=== PATIENT | female | born 1965 | race Caucasian/White ===

== ENCOUNTER 2020-04-06 00:06 | Outpatient (CLI) | payer OTHER, SELFPAY ==
--- NOTE | 2020-04-06 13:08 | PM.IMHP ---
H&P: HPI History of Present Illness Chief complaint: preop covid Narrative: Erendira Bourne is a 54 year old female presents for evaluation of irregular vaginal bleeding. Has been on control pills for a number of years with regular cycles and her last cycle was heavy with bleeding clots and significant amount of discomfort. Ultrasound revealed mildly enlarged uterus with thickened irregular endometrial cavity. Presents today for evaluation of cavity and tissue sampling. Review of Systems Review of Systems: All systems reviewed & are unremarkable except as noted in HPI and below PMFSH Family History Family History Father Family history of thyroid disease Hypertension Family history of sleep apnea Sibling Family history of thyroid disease Grandparent Hypertension Carcinoma of colon Family history of emphysema Family history of dementia Family history of heart disease in male family member before age 55 Diabetes mellitus Mother Family history of chronic obstructive pulmonary disease Social History Social History Smoking status: Never smoker Alcohol intake: never Meds Home Medications and Allergies Home Medications Medication Instructions Recorded Confirmed Type calcium carbonate [Calcium 500] 500 mg PO DAILY 03/26/20 03/26/20 History magnesium oxide 400 mg PO DAILY 03/26/20 03/26/20 History Allergies Allergy/AdvReac Type Severity Reaction Status Date / Time No Known Allergies Allergy Verified 03/26/20 13:18 Exam Const: General: no acute distress Resp: Auscultation: clear to auscultation bilaterally Cardio: Rate: regular rate Rhythm: regular rhythm GI: GI Palp: Yes Soft to palpation : Other: Uterus is enlarged adnexa not enlarged nontender Assessment and Plan Assessment and plan (1) Menometrorrhagia: Code(s): N92.1 - Excessive and frequent menstruation with irregular cycle Status: Acute (2) Endometrial thickening on ultrasound: Code(s): R93.89 - Abnormal findings on diagnostic imaging of other specified body structures Status: Acute Additional Plan Proceed with hysteroscopy with uterine curettings.
[2020-04-06 17:13] LABS: SARS-CoV-2 RNA PCR Negative
== END 2020-04-06 00:07 | disposition home or self-care (01) ==
LOC: ANHCOVIDDT 00:06
PROVIDERS: PCP Family Medicine; Visit Provider Obstetrics & Gynecology
DX: Z01.812 Encounter for preprocedural laboratory examination (principal); Z11.59 Encounter for screening for other viral diseases
CPT/HCPCS: 87635; C9803; U0003

== ENCOUNTER 2020-04-08 01:21 | Day surgery (SDC) | payer OTHER, SELFPAY ==
[2020-03-26 13:20] VITALS: BMI 24.3
--- NOTE | 2020-04-08 09:33 | WPDANESEPPF ---
Anes - Initial Pre Proc Eval Procedure: Operation Date: 04/08/20 12:45 Proposed Procedures p Hysteroscopy Dilation and Curettage - Sam Madrid MD Date/Time: 04/08/20 09:33 Surgeon: Sam Madrid MD Pre Op Diagnosis: menorrhagia Patient Data Age: 54 Gender: F Height: 1.73 m Weight: 72.7 kg Allergies Allergy/AdvReac Type Severity Reaction Status Date / Time No Known Allergies Allergy Verified 03/26/20 13:18 Home Medications Medication Instructions Recorded Confirmed Type calcium carbonate [Calcium 500] 500 mg PO DAILY 03/26/20 03/26/20 History magnesium oxide 400 mg PO DAILY 03/26/20 03/26/20 History Patient hx anesthesia problems: none Family hx anesthesia problems: none [facility] Past Medical History Medical History (Updated 04/08/20 @ 09:34 by Nino Tony MD) Abnormal uterine bleeding Endometrial thickening on ultrasound Menometrorrhagia Social History Social History Smoking status: Never smoker Alcohol intake: never Anes - Eval Final PreProcedure Day of Procedure 04/08/20 09:33 Patient weight: obese Heart: regular rate and rhythm Lungs: clear to auscultation and normal air movement Airway: Mallampati scale class II Neurological: alert and oriented Last oral intake: >/= 8 hours ASA classification: II Emergent: no Anesthetic plan: proceed Anesthesia type and monitoring: general GIVS Informed Consent: The patient's anesthetic plan and its attendant risks and benefits were discussed with the patient/family/POA. Questions were solicited and answers provided to the satisfaction of the patient/family/POA.
[2020-04-08] MEDS: LACTATED RINGERS 1,000 ML 30 ML IV CONT (11:10)
[2020-04-08 11:26] VITALS: BMI 25.7
[2020-04-08 11:49] VITALS: BP 129/67; PULSE 73; RESP 16; TEMP 36.9; O2SAT 100
--- NOTE | 2020-04-08 11:58 | WPDHPUPDATE1 ---
History and Physical Update Update Date/Time: 04/08/20 11:58 History and Physical has been reviewed, including an updated exam of the patient. There are NO changes in the patient's condition. Risks, benefits, and alternatives have been discussed and questions answered. Patient agrees to proceed with procedure.
[2020-04-08] MEDS: KETOROLAC 30 MG/ML VIAL (*BKC) IV PUSH (12:48)
--- NOTE | 2020-04-08 13:07 | PM.OP ---
Procedure Note - Brief Procedure Note - Brief Date of procedure: 04/08/20 Pre-op diagnosis: menorrhagia Post-op diagnosis: same Procedure performed: Hysteroscopy with uterine curettings with myomectomy. Description of procedure: Patient prepped in usual manner for this procedure. Cervix dilated to allow the hysteroscope to be placed. Once placed thickened posterior wall was noted along with a small fibroid in the posterior wall. This was readily removed with curettings. At this point seizure was considered terminated and the patient procedure well sent to recovery room in stable condition. Anesthesia: GLMA Surgeon: Sam Madrid MD Estimated blood loss (mL): 0 Drains: No Packing: No Pathology: yes Complications: No immediate complications Condition: stable Disposition: PACU Findings: Thickened posterior wall along with small posterior wall fibroid.
[2020-04-08 13:12] VITALS: BP 113/66; PULSE 71; RESP 18; O2SAT 94
[2020-04-08 13:40] VITALS: BP 139/74; PULSE 67; RESP 16; O2SAT 98
[2020-04-08 14:10] VITALS: BP 129/65; PULSE 64; RESP 16
== END 2020-04-08 14:36 | disposition home or self-care (01) ==
PROVIDERS: PCP Family Medicine; Visit Provider Obstetrics & Gynecology
PROC: 0U5B8ZZ Destruction of Endometrium, Via Natural or Artificial Opening Endoscopic (ICD-10-PCS; CPT 58563; principal; 2020-04-08 12:45)
DX: N92.0 Excessive and frequent menstruation with regular cycle (principal); D25.0 Submucous leiomyoma of uterus; E66.9 Obesity, unspecified; Z68.25 Body mass index [BMI] 25.0-25.9, adult
CPT/HCPCS: 58561; 88305; A9270; J1885; J2250; J2704; J3010; J7030; J7120

== ENCOUNTER 2021-07-12 00:35 | Day surgery (SDC) | payer OTHER, SELFPAY ==
[2021-07-05 12:40] VITALS: BMI 22.8
[2021-07-12 10:37] VITALS: BP 113/71; PULSE 74; RESP 16; TEMP 36.2; O2SAT 100; BMI 22.8
--- NOTE | 2021-07-12 10:45 | PM.HPGS ---
History of Present Illness History of Present Illness Consent: Risks, benefits, and alternatives have been discussed and questions answered. Patient agrees to proceed with procedure. Chief complaint: neoplasm screening Narrative: Erendira Bourne is a 55 year old female here for first screening colonoscopy Review of Systems Constitutional: Constitutional: Denies headache(s) and Denies weakness Eyes: Eyes: Denies blurry vision ENT: Reports Normal hearing present, Denies headache(s) and Denies neck pain Cardiovascular: Cardiovascular: Denies chest pain and Denies dyspnea Respiratory: Respiratory: Denies dyspnea Gastrointestinal: Gastrointestinal: Reports no additional gastrointestinal complaints Genitourinary: Genitourinary: Denies dysuria Musculoskeletal: Musculoskeletal: Denies neck pain Integumentary/Breasts: Skin/Breast: Denies dry skin Neurologic: Reports Normal hearing present, Denies headache(s) and Denies weakness Psychiatric: Psychiatric: Denies anxiety Endocrine: Endocrine: Denies change in body appearance Hematologic/Lymphatic: Hematologic/Lymphatic: Denies easy bleeding Allergic/Immunologic: Allergic/Immunologic: Denies urticaria PMFSH Past Medical History Medical History (Updated 07/12/21 @ 10:45 by Kana Cuenca MD) Abnormal uterine bleeding Colon cancer screening Endometrial thickening on ultrasound Menometrorrhagia Surgical History Surgical History H/O dilation and curettage (~04/2020) Family History Family History Father Family history of thyroid disease Hypertension Family history of sleep apnea Sibling Family history of thyroid disease Grandparent Hypertension Carcinoma of colon Family history of emphysema Family history of dementia Family history of heart disease in male family member before age 55 Diabetes mellitus Mother Family history of chronic obstructive pulmonary disease Social History Social History Smoking status: Never smoker Alcohol intake: never Substance use: never Substance use type: does not use Living arrangements: with family Spiritual care concerns: No Meds Home Medications and Allergies Home Medications Medication Instructions Recorded Confirmed Type calcium carbonate [Calcium 500] 500 mg PO DAILY 03/26/20 07/05/21 History magnesium oxide 400 mg PO DAILY 03/26/20 07/12/21 History Allergies Allergy/AdvReac Type Severity Reaction Status Date / Time No Known Allergies Allergy Verified 07/12/21 10:35 Vital Signs Vital Signs - 24 hr 07/12/21 10:37 Temperature 97.2 F L Pulse Rate 74 Respiratory Rate 16 Blood Pressure 113/71 Pulse Oximetry 100 Exam Const: General: comfortable and no acute distress HENMT: General nose exam: Normal nares present Eyes: General: appearance normal, both eyes and all related structures Neck: Neck: no JVD Resp: Auscultation: clear to auscultation bilaterally Cardio: Rate: regular rate Rhythm: regular rhythm GI: Inspection: non-distended GI Palp: Yes Soft to palpation Skin: General skin exam: normal color Neuro: General: gait normal Speech: normal speech Extrem: General: normal to inspection Psych: Mental Status: mental status grossly normal Assessment and Plan Assessment and plan (1) Colon cancer screening: Code(s): Z12.11 - Encounter for screening for malignant neoplasm of colon Status: Acute Assessment and Plan: colonoscopy
[2021-07-12] MEDS: LACTATED RINGERS 1,000 ML 150 ML IV CONT (10:46)
--- NOTE | 2021-07-12 10:50 | WPDANESEPPF ---
Anes - Initial Pre Proc Eval Procedure: Operation Date: 07/12/21 12:00 Proposed Procedures p Screening Colonoscopy - Kana Cuenca MD Date/Time: 07/12/21 10:50 Surgeon: Kana Cuenca MD Pre Op Diagnosis: neoplasm screening Patient Data Age: 55 Gender: F Height: 1.73 m Weight: 68 kg Last Vital Signs Temp 36.2 C L 07/12/21 10:37 Pulse 74 07/12/21 10:37 Resp 16 07/12/21 10:37 BP 113/71 07/12/21 10:37 Pulse Ox 100 07/12/21 10:37 Allergies Allergy/AdvReac Type Severity Reaction Status Date / Time No Known Allergies Allergy Verified 07/12/21 10:35 Home Medications Medication Instructions Recorded Confirmed Type calcium carbonate [Calcium 500] 500 mg PO DAILY 03/26/20 07/05/21 History magnesium oxide 400 mg PO DAILY 03/26/20 07/12/21 History Patient hx anesthesia problems: none Family hx anesthesia problems: none Results Review: All pre-operative results and documents have been reviewed as part of the pre-operative evaluation. [facility] Past Medical History Medical History (Updated 07/12/21 @ 10:53 by Hung Caba MD) Abnormal uterine bleeding Cholesteatoma of ear Colon cancer screening Endometrial thickening on ultrasound Menometrorrhagia Surgical History Surgical History H/O dilation and curettage (~04/2020) Family History Family History Father Family history of thyroid disease Hypertension Family history of sleep apnea Sibling Family history of thyroid disease Grandparent Hypertension Carcinoma of colon Family history of emphysema Family history of dementia Family history of heart disease in male family member before age 55 Diabetes mellitus Mother Family history of chronic obstructive pulmonary disease Social History Social History Smoking status: Never smoker Alcohol intake: never Substance use: never Substance use type: does not use Living arrangements: with family Spiritual care concerns: No Anes - Eval Final PreProcedure Day of Procedure 07/12/21 10:50 Patient weight: normal Heart: regular rate and rhythm Lungs: clear to auscultation Airway: Mallampati scale class II Neurological: alert and oriented Last oral intake: >/= 8 hours ASA classification: I Emergent: no Anesthetic plan: proceed Anesthesia type and monitoring: general GIVS and standard monitoring Results Review: All pre-operative results and documents have been reviewed as part of the pre-operative evaluation. Informed Consent: The patient's anesthetic plan and its attendant risks and benefits were discussed with the patient/family/POA. Questions were solicited and answers provided to the satisfaction of the patient/family/POA.
[2021-07-12 11:37] VITALS: BP 90/54; PULSE 65; RESP 21; O2SAT 100
[2021-07-12 11:47] VITALS: BP 102/59; PULSE 63; RESP 25; O2SAT 100
[2021-07-12 11:57] VITALS: BP 124/73; PULSE 63; RESP 16; O2SAT 100
== END 2021-07-12 12:07 | disposition home or self-care (01) ==
PROVIDERS: PCP Nurse Practitioner Family; Visit Provider Internal Medicine Gastroenterology
PROC: 0DJD8ZZ Inspection of Lower Intestinal Tract, Via Natural or Artificial Opening Endoscopic (ICD-10-PCS; CPT 45378; principal; 2021-07-12 12:00)
DX: Z12.11 Encounter for screening for malignant neoplasm of colon (principal); D12.2 Benign neoplasm of ascending colon; K64.8 Other hemorrhoids
CPT/HCPCS: 45385; 45380; 88305; J2704; J7120

== ENCOUNTER → 2021-07-15 08:21 | Outpatient (CLI) | payer OTHER, SELFPAY ==
--- NOTE | ~2021-07-15 | MM_ITS ---
EXAMINATION: MM diagnostic [place] BI w ade HISTORY: Fibrocystic breast disease TECHNIQUE: Additional 3-D tomosynthesis images of the breasts were performed and synthetic 2-D images were generated. CAD analysis was submitted and interpreted. COMPARISON: Comparison to multiple prior studies sequentially, with oldest reviewed study dated 12/13. BREAST PARENCHYMAL COMPOSITION: The breasts are heterogenously dense, which may obscure small masses. FINDINGS: There are no suspicious masses, calcifications or architectural distortion in either breast to suggest malignancy. IMPRESSION: 1. No mammographic evidence for malignancy in either breast. 2. Routine yearly screening mammogram and regular clinical breast examination are recommended. BI-RADS Category 1: Negative Reviewed, dictated and finalized at location [facility]. IMPRESSION: 1. No mammographic evidence for malignancy in either breast. 2. Routine yearly screening mammogram and regular clinical breast examination a re recommended. BI-RADS Category 1: Negative
== END ==
PROVIDERS: Visit Provider Obstetrics & Gynecology
DX: R92.8 Other abnormal and inconclusive findings on diagnostic imaging of breast (principal)
CPT/HCPCS: 77062; 77066; G0279

== ENCOUNTER → 2021-08-20 15:15 | Outpatient (CLI) | payer OTHER, SELFPAY ==
--- NOTE | ~2021-08-20 | CT_ITS ---
EXAMINATION: CT abdomen pelvis wo/w con DATE: 08/20/2021 16:11 INDICATION: Microscopic hematuria TECHNIQUE: Computed tomography (CT) of the abdomen and pelvis was performed without and subsequently with 130 cc Omnipaque 350 intravenous contrast. Automated exposure control and iterative reconstructi on technique were employed. Exam dose: 1163.15 mGy-cm total exam DLP. COMPARISON: None. FINDINGS: The lung bases are clear of infiltrate or consolidation. Heart size is normal. No pericardi al or pleural effusion. The liver, gallbladder, bile ducts, spleen, pancreas, pancreatic duct, and adrenal glands and kidneys are unremarkable. No urinary tract calculus or hydroureteronephrosis. The urinary bladder, uterus an d adnexal areas are unremarkable. Normal caliber of the abdominal aorta. No intraperitoneal or retroperitoneal or pelvic mass lesion or adenopathy or ascites. Normal appendix. No bowel obstruction, bowel wall thickening, pneumatosis or intraperitoneal free air . No suspicious osteolytic or osteoblastic lesions are noted. IMPRESSION: No significant abnormality Reviewed, dictated and finalized at [facility]. Reviewed, dictated and finalized at location [facility]. IMPRESSION: No significant abnormality
[2021-08-20 15:45] LABS: Estimated Glomerular Filt Rate > 60
== END ==
PROVIDERS: Visit Provider Urology
DX: R31.29 Other microscopic hematuria (principal)
CPT/HCPCS: 74178; Q9967

== ENCOUNTER 2021-09-21 08:04 | Outpatient (CLI) | payer OTHER, SELFPAY ==
--- NOTE | 2021-09-21 08:37 | ECG_ITS ---
Measurements Intervals [place] Rate: 64 P: 65 TX: 173 QRS: 46 QRSD: 98 T: 53 QT: 408 QTc: 424 Interpretive Statements SINUS RHYTHM POSSIBLE LEFT ATRIAL ENLARGEMENT INCOMPLETE RIGHT BUNDLE BRANCH BLOCK BORDERLINE R WAVE PROGRESSION, ANTERIOR LEADS BORDERLINE ECG Electronically Signed On 09-21-2021 9:37:01 [employer] by Azael Hyman D.O.
[2021-09-21 09:22] LABS: Basophils Percent Auto 0.6 % (0.2-1.2); Eosinophils Absolute Auto 0.1 K/mm3 (0-0.3); Eosinophils Percent Auto 2.5 % (0-4.4); Hematocrit 44.1 % (37.0-47.0); Hemoglobin 14.4 g/dL (12.0-15.0); Immature Granulocyte Absolute 0.01 K/mm3 (0.00-0.031); Immature Granulocyte Percent A 0.2 % (0-0.5); Lymphocytes Absolute Auto 1.97 K/mm3 (0.9-3.2); Lymphocytes Percent Auto 38.2 % (18.3-44.2); Mean Corpuscular HGB Conc 32.7 g/dl (32-36); Mean Corpuscular Hemoglobin 29.3 pg (26-34); Mean Corpuscular Volume 89.8 fl (80-100); Mean Platelet Volume 11.2 fl (7.4-10.4); Monocytes Absolute Auto 0.4 K/mm3 (0.1-0.6); Monocytes Percent Auto 6.8 % (2.6-8.5); Neutrophils Absolute Auto 2.7 K/mm3 (1.3-6.7); Neutrophils Percent Auto 51.7 % (45.5-73.1); Platelet Count Result 226 k/mm3 (150-375); Red Blood Count 4.91 M/mm3 (4.2-5.4); Red Cell Distribution Width 13.2 % (11.5-14.5); White Blood Count 5.2 K/mm3 (4.5-10.0)
[2021-09-21 09:30] LABS: INR 0.9; Prothrombin Time 11.7 Seconds (11.1-14.7)
[2021-09-21 09:31] LABS: Partial Thromboplastin Time 27.1 SECONDS (22.3-36.8)
[2021-09-21 09:33] LABS: Alanine Aminotransferase 26 U/L (4-35); Albumin Level 4.4 g/dL (3.5-5.1); Alkaline Phosphatase 94 U/L (38-126); Anion Gap 7 mmol/L (8-16); Aspartate Amino Transferase 27 U/L (14-36); Bilirubin,Total 0.6 mg/dL (0.2-1.3); Blood Urea Nitrogen 13 mg/dL (7-17); Carbon Dioxide 30 mmol/L (22-30); Chloride 102 mmol/L (98-107); Estimated Glomerular Filt Rate > 60; Glucose 97 mg/dL (65-110); Potassium 3.6 mmol/L (3.4-5.0); Sodium 139 mmol/L (137-145)
== END 2021-09-21 08:05 | disposition home or self-care (01) ==
LOC: ANHSURGERY 08:07
PROVIDERS: PCP Nurse Practitioner Family; Visit Provider Urology
DX: N81.4 Uterovaginal prolapse, unspecified (principal); Z01.818 Encounter for other preprocedural examination; I45.10 Unspecified right bundle-branch block
CPT/HCPCS: 36415; 80053; 85025; 85610; 85730; 86850; 86900; 86901; 87086; 93005

== ENCOUNTER 2021-10-04 01:56 | Day surgery (SDC) | payer OTHER, SELFPAY ==
--- NOTE | 2021-09-21 08:01 | PC.NURSE ---
Addendum entered by Sally Jo RN 09/21/21 08:28: PT INFORMED TO ARRIVE AT 0900 ON 10/04/21 FOR SURGERY AT 1100 - UNDERSTANDING VOICED Original Note: Report to the Outpatient Waiting Room, entrance under the green pavilion located off [facility], at time _0800_ on date _10/04/21_. OR Time: __0900 AM__. - You and your visitor will be asked a series of questions to screen for COVID 19 for your protection. - A mask is required within the hospital. - Only one visitor is allowed at this time. Patient visitors will be guided where to wait when not with patient. Preoperative COVID Testing Requirements: No COVID Test needed if: (proof is required; if not received patient will have Rapid Test prior to entry) - Patient has received COVID Vaccine at least 14 days prior to procedure date or - Patient has positive COVID test result within last 90 days of surgery date. COVID Test needed if above criteria is not met If not COVID vaccinated a COVID test must be conducted within 72 hours of surgery and patient is asked to isolate self from time of testing until procedure. You will go to the [employer] [facility] for your COVID testing. The [employer] [facility] is located at the corner of [address] [facility]. You will only be called if COVID results are positive and your surgeon may reschedule your elective surgery date. Patients may have clear liquids (water, carbonated beverages, clear teas, apple juice) until 3 hours prior to surgery (0800 AM) with a maximum of 20 ounces. - No food from midnight until time of surgery - Infants may have breast milk until 4 hours before surgery, formula 6 hours prior to surgery. - Children will be allowed to drink immediately following surgery. If applicable, please bring a bottle or sippy cup to assist with drinking. Juice, water, soda, and popsicles are readily available. For infants on formula, please bring formula the day of surgery. Pacifiers are allowed. Take the following medications with a SIP of water the morning of surgery: NONE Medications to discontinue per physician ____ALL VITAMINS & SUPPLEMENTS - 3 DAYS PRIOR TO SURGERY PER ANESTHESIA Date to take last dose____09/30/21 Please no make-up, nail salvadorean, hairspray, perfume, deodorant, or body powder the day of surgery. No jewelry (including any body piercings) or valuables the day of surgery, leave them at home. Please take a shower or bath the night before, or the morning of, surgery with an antibacterial soap. Wear comfortable, loose fitting clothing. Children are encouraged to wear pajamas. - Jewelry must be removed prior to entering the operating room. Rings and piercings that are not removed may be cut off. - The hospital will not accept responsibility for valuables. - Please leave all valuables, including medications, at home the day of surgery. If you are going home after surgery, a licensed trailer driver must drive you home. - NO public transportation without another adult. - We recommend that an adult stay with you for 24 hours following discharge. - We also recommend that you do not drive, make important decision, drink alcoholic beverages, or take any drugs that were not prescribed by your health care provider for at least 24 hours after your discharge time. For Pediatric surgeries, we recommend two adults accompany the child home (only one inside the building at this time). Follow any additional instructions given to you from your surgeon. Telephone instructions given to ___PT and asked if any additional questions and then verbalized understanding. Patient advised to call surgeon office or pre surgery nurse liaison [phone] if any additional questions.
[2021-09-21 08:03] VITALS: BP 120/68; PULSE 70; RESP 18; TEMP 36.7; O2SAT 99; BMI 24.0
--- NOTE | 2021-10-01 09:47 | P.HP_ITS ---
H&P: HPI History of Present Illness Date/Time: 10/01/21 09:47 55-year-old with uterine prolapse. No stress incontinence Chief Complaint: Uterine prolapse Review of Systems Review of Systems: All systems reviewed & are unremarkable except as noted in HPI and below PMFSH Past Medical History Medical History Abnormal uterine bleeding Cholesteatoma of ear Colon cancer screening Endometrial thickening on ultrasound Menometrorrhagia Surgical History Surgical History H/O dilation and curettage (~04/2020) Family History Family History Father Family history of thyroid disease Hypertension Family history of sleep apnea Sibling Family history of thyroid disease Grandparent Hypertension Carcinoma of colon Family history of emphysema Family history of dementia Family history of heart disease in male family member before age 55 Diabetes mellitus Mother Family history of chronic obstructive pulmonary disease Social History Social History Smoking status: Never smoker Second hand tobacco smoke exposure: No Alcohol intake: never Substance use: never Substance use type: does not use Spiritual care concerns: No Meds Home Medications and Allergies Home Medications Medication Instructions Recorded Confirmed Type calcium carbonate [Calcium 500] 500 mg PO DAILY 03/26/20 09/21/21 History magnesium oxide 400 mg PO DAILY 03/26/20 09/21/21 History Allergies Allergy/AdvReac Type Severity Reaction Status Date / Time No Known Allergies Allergy Verified 09/21/21 08:19 Exam Narrative: [place] at 0 Assessment and Plan Assessment and plan (1) Uterine prolapse: Code(s): N81.4 - Uterovaginal prolapse, unspecified Status: Acute Assessment and Plan: Robotic sacral colpopexy
[2021-10-04] VITALS (11 sets, daily range): BP systolic 102–139; BP diastolic 58–93; PULSE 51–71; RESP 9–18; TEMP 36.1–36.6; O2SAT 98–100
--- NOTE | 2021-10-04 07:14 | WPDHPUPDATE1 ---
History and Physical Update Update Date/Time: 10/04/21 07:14 History and Physical has been reviewed, including an updated exam of the patient. There are NO changes in the patient's condition. Risks, benefits, and alternatives have been discussed and questions answered. Patient agrees to proceed with procedure.
[2021-10-04] MEDS: ACETAMINOPHEN 500 MG TABLET 1000 MG PO (09:54)
[2021-10-04] MEDS: KETOROLAC 15 MG/ML VIAL (*BKC) IV PUSH (10:06)
[2021-10-04] MEDS: LACTATED RINGERS 1,000 ML 30 ML IV CONT ×2 (10:10→14:30)
--- NOTE | 2021-10-04 10:48 | WPDANESEPPF ---
Anes - Initial Pre Proc Eval Procedure: Operation Date: 10/04/21 11:00 Proposed Procedures p Robotic Sacrocolpopexy - Leroy Boyd MD s Robotic Assisted Laparoscopic Supracervical Hysterectomy with Bilateral Salpingo-Oophorectomy - Sam Madrid MD Date/Time: 10/04/21 10:48 Surgeon: Leroy Boyd MD Pre Op Diagnosis: uterine prolapse Patient Data Age: 55 Gender: F Height: 1.73 m Weight: 71.9 kg Last Vital Signs Temp 36.7 C 09/21/21 08:03 Pulse 70 09/21/21 08:03 Resp 18 09/21/21 08:03 BP 120/68 09/21/21 08:03 Pulse Ox 99 09/21/21 08:03 Allergies Allergy/AdvReac Type Severity Reaction Status Date / Time No Known Allergies Allergy Verified 10/04/21 09:52 Home Medications Medication Instructions Recorded Confirmed Type calcium carbonate [Calcium 500] 500 mg PO DAILY 03/26/20 10/04/21 History magnesium oxide 400 mg PO DAILY 03/26/20 10/04/21 History Patient hx anesthesia problems: post op nausea/vomiting Family hx anesthesia problems: none Results Review: All pre-operative results and documents have been reviewed as part of the pre-operative evaluation. [facility] Past Medical History Medical History Abnormal uterine bleeding Cholesteatoma of ear Colon cancer screening Endometrial thickening on ultrasound Menometrorrhagia Surgical History Surgical History H/O dilation and curettage (~04/2020) Family History Family History Father Family history of thyroid disease Hypertension Family history of sleep apnea Sibling Family history of thyroid disease Grandparent Hypertension Carcinoma of colon Family history of emphysema Family history of dementia Family history of heart disease in male family member before age 55 Diabetes mellitus Mother Family history of chronic obstructive pulmonary disease Social History Social History Smoking status: Never smoker Second hand tobacco smoke exposure: No Alcohol intake: never Substance use: never Substance use type: does not use Living arrangements: with family Spiritual care concerns: No Anes - Eval Final PreProcedure Day of Procedure 10/04/21 10:48 Patient weight: normal Heart: regular rate and rhythm Lungs: clear to auscultation Airway: Mallampati scale class II Neurological: alert and oriented Last oral intake: >/= 8 hours ASA classification: I Emergent: no Anesthetic plan: proceed Anesthesia type and monitoring: general ETT and standard monitoring Results Review: All pre-operative results and documents have been reviewed as part of the pre-operative evaluation. Informed Consent: The patient's anesthetic plan and its attendant risks and benefits were discussed with the patient/family/POA. Questions were solicited and answers provided to the satisfaction of the patient/family/POA.
[2021-10-04] MEDS: ceFAZolin 2 GM/D5W 50 ML 2 GM/50 ML BAG IVPB (11:21)
--- NOTE | 2021-10-04 11:23 | PM.IMHP ---
H&P: HPI History of Present Illness Date/Time: 10/04/21 11:23 55-year-old 2 para 2002 female presents with complaints of pelvic pressure fullness for a number of years worsening over the last 6 months. She has seen Dr. Boyd will also be proceeding with sacral colpopexy. We have discussed ovarian preservation and or removal and she was strongly desirous of retaining her ovaries. Have suggested that might be in her best interest to have removed but she feels fairly strongly that if there are no abnormalities noted at the time of her procedure that she proceed retention. We will honor this request. Chief Complaint: Uterine prolapse [facility] Past Medical History Medical History Abnormal uterine bleeding Cholesteatoma of ear Colon cancer screening Endometrial thickening on ultrasound Menometrorrhagia Surgical History Surgical History H/O dilation and curettage (~04/2020) Family History Family History Father Family history of thyroid disease Hypertension Family history of sleep apnea Sibling Family history of thyroid disease Grandparent Hypertension Carcinoma of colon Family history of emphysema Family history of dementia Family history of heart disease in male family member before age 55 Diabetes mellitus Mother Family history of chronic obstructive pulmonary disease Social History Social History Smoking status: Never smoker Second hand tobacco smoke exposure: No Alcohol intake: never Substance use: never Substance use type: does not use Living arrangements: with family Spiritual care concerns: No Meds Home Medications and Allergies Home Medications Medication Instructions Recorded Confirmed Type calcium carbonate [Calcium 500] 500 mg PO DAILY 03/26/20 10/04/21 History magnesium oxide 400 mg PO DAILY 03/26/20 10/04/21 History Allergies Allergy/AdvReac Type Severity Reaction Status Date / Time No Known Allergies Allergy Verified 10/04/21 09:52 Vital Signs Vital Signs - 24 hr 10/04/21 09:15 Temperature 36.6 C Pulse Rate 71 Respiratory Rate 18 Blood Pressure 120/61 Pulse Oximetry 100 Exam Const: General: cooperative and healthy appearing Resp: Effort & Inspection: normal respiratory effort Auscultation: clear to auscultation bilaterally Cardio: Rate: regular rate Rhythm: regular rhythm GI: Inspection: normal to inspection Auscultation: normal bowel sounds : External Female Exam: normal external appearance Speculum Exam - Vagina: normal appearance of the vagina Speculum Exam - Cervix: normal appearance of the cervix Bimanual exam- vagina & uterus: uterine size normal (Prolapse noted to the introitus) Bimanual Exam- Adnexa, other: No adnexal tenderness and cystocele Assessment and Plan Assessment and plan (1) Uterine prolapse: Code(s): N81.4 - Uterovaginal prolapse, unspecified Status: Acute Additional Plan Proceed with robotic assisted supracervical hysterectomy with ovarian preservation.
--- NOTE | 2021-10-04 11:27 | WPDHPUPDATE1 ---
History and Physical Update Update Date/Time: 10/04/21 11:27 History and Physical has been reviewed, including an updated exam of the patient. There are NO changes in the patient's condition. Risks, benefits, and alternatives have been discussed and questions answered. Patient agrees to proceed with procedure.
[2021-10-04] MEDS: metroNIDAZOLE 500 MG/ISO 100ML 500 MG/100 ML BAG 100 MG IVPB (11:32)
--- NOTE | 2021-10-04 12:45 | PM.OP ---
Procedure Note - Brief Procedure Note - Brief Date of procedure: 10/04/21 Pre-op diagnosis: uterine prolapse Post-op diagnosis: same Procedure performed: Robotic assisted supracervical hysterectomy with ovarian preservation Description of procedure: Patient was prepped and draped in the usual manner for this procedure. Dr. Boyd placed all of the trocars and instruments. At this point evaluation the pelvis revealed mildly enlarged uterus uterus prolapse to the introitus and the tubes over without abnormality. Bipolar cautery was used to cauterize this mesial salpinx and cut and removed separately. Utero-ovarian ligament cauterized and cut and the round ligament was cauterized and cut bladder flap was then developed without difficulty. Posterior leaf of the broad ligament was incised as well. Uterine vessels were skeletonized cauterized and cut. At this point the uterus was bivalved and once the by valving met the cervical stump the uterus was amputated at the cervix. The cervix was hemostatic and at this point gynecologic portion of the procedure was complete and Dr. Boyd rim turned to the room to complete his portion of the procedure. Anesthesia: GLMA Surgeon: Sam Madrid MD Estimated blood loss (mL): 100 Drains: No Packing: No Pathology: yes Complications: No immediate complications Condition: stable Disposition: PACU Findings: Uterus prolapse tube vagina opening. Ovaries without abnormality.
--- NOTE | 2021-10-04 14:29 | P.OP_ITS ---
Procedure Note - Detailed Date of Procedure 10/04/21 Pre-op Diagnosis uterine prolapse Post-op Diagnosis same Procedure Performed Robotic assisted laparoscopic sacral colpopexy Cystoscopy Surgeon Leroy Boyd MD Anesthesia general Indications A woman with uterine prolapse without stress incontinence. She desires surgical correction. She is here for the above. She understands risks of bleeding, infection, diskitis, damage to surrounding organs, bowel injury, bowel obstruction, mesh related complications including exposure and extrusion, postoperative voiding dysfunction including incontinence and retention, need for ancillary procedures, dyspareunia, recurrence of prolapse, postoperative stress incontinence and other perioperative intraoperative postoperative complications. She agrees to proceed. Findings See below Description of Procedure She was correctly identified. Informed consent obtained. She from the operating room. She was given general anesthesia. She was given appropriate perioperative antibiotics. She was placed a low lithotomy position. Pressure points were padded. A time-out performed. I marked out the skin 3 fingerbreadths cephalad to the umbilicus. I anesthetized the skin. I incised the skin. I dissected down to the fascia. I grasped the fascia with Yvonne clamps. I entered the fascia sharply in a Finnegan type technique. I placed sutures for later fascial closure. I placed a midline trocar. I examined the abdomen. There is no sign of any injury. Under direct vision I placed 2 additional trocars in the right upper quadrant and 2 additional trocars the left upper quadrant. She was placed in steep Trendelenburg. The robot was docked. Her local company intermodal truck driver completed their portion of the procedure. Please see that operative report for details. I then sat at the console. The Sizer in the vagina created plane on the anterior and posterior vaginal wall. I took great care not to injure the vagina, bladder, or rectum. I introduced the mesh into the abdomen. I sewed the anterior leaflet of mesh on the anterior vaginal wall. I sewed the posterior leaflet of mesh on the posterior vaginal wall. This was done with several sutures of 2 0 Galena-Ardien. I reflected the colon laterally. I opened the posterior peritoneum over the sacral promontory. I carried this into the cul-de-sac. I freed up the edges for later retroperitonealization. I located the anterior longitudinal ligament the sacrum. I cleaned off all fatty tissues. I then tensioned my mesh appropriately. I did a vaginal exam the bedside. I assured prolapse reduction without undue tension. I then sewed the proximal leaflet of mesh onto the anterior longitudinal ligament of the sacrum with several sutures of 2 0 Galena-Adrien. I then used a 2 0 Monocryl to completely and meticulously retroperitonealized all mesh. I allowed the colon to go back to its normal anatomic location. There is no sign of any impingement. The specimen was then removed. All ports removed. Fascia was tied down. Skin was closed with Monocryl and surgical glue. I then performed cystoscopy. There was no tumors or surgical artifact. Both ureters were seen to excrete clear yellow urine. There is no surgical artifact in the bladder or urethra. I cut the excess sling material. Close incision with glue. She was awakened and transferred to PACU in stable condition. Implants Sacral colpopexy mesh Urethral sling Packing No Pathology none sent Complications No immediate complications Condition stable Disposition PACU
--- NOTE | 2021-10-04 17:44 | SUR.PHASEII ---
PATIENT UP AMBULATING IN BRIGHT WITH MONROE CATHETER.
--- NOTE | 2021-10-04 17:57 | SUR.PHASEII ---
1725 PATIENT WALKING IN BRIGHT WITH MONROE CATHETER INTACT. PATIENT STILL SLIGHTLY DROWSY BUT STATES SHE FEELS MUCH MORE AWAKE AND IS READY TO GO HOME. 1730 MONROE CATHETER IRRIGATED WITH 400 ML STERILE NORMAL SALINE; PATIENT TOLERATED WELL. MONROE CATHETER THEN REMOVED AFTER REMOVING 10 ML FLUID FROM BALLOON. 1735 PATIENT VOIDED 330 ML CLEAR URINE; DENIED BURNING. NO VAGINAL BLEEDING.
== END 2021-10-04 17:50 | disposition home or self-care (01) ==
PROVIDERS: Obstetrics & Gynecology; PCP Nurse Practitioner Family; Visit Provider Urology
PROC: (CPT 57425; principal; 2021-10-04 11:00)
PROC: 0UT94ZZ Resection of Uterus, Percutaneous Endoscopic Approach (ICD-10-PCS; CPT 57425; 2021-10-04 11:00)
DX: N81.4 Uterovaginal prolapse, unspecified (principal); D25.1 Intramural leiomyoma of uterus; N80.0 Endometriosis of uterus; N73.6 Female pelvic peritoneal adhesions (postinfective); N92.1 Excessive and frequent menstruation with irregular cycle
CPT/HCPCS: 57425; 58542; S2900 ×2; 88307; A9270; C1781; C9290; J0690; J1100; J1885; J2250; J2270; J2405; J2704; J7030; J7120

== ENCOUNTER 2022-01-13 11:38 | Outpatient (CLI) | payer OTHER, SELFPAY | END 2022-01-13 11:39 | disposition home or self-care (01) | PROVIDERS: PCP Nurse Practitioner Family; Visit Provider Urology | DX: Z01.812 Encounter for preprocedural laboratory examination (principal); N39.3 Stress incontinence (female) (male) | CPT/HCPCS: 87086 ==

== ENCOUNTER 2022-01-21 00:52 | Day surgery (SDC) | payer OTHER, SELFPAY ==
[2022-01-11 15:25] VITALS: BMI 23.6
--- NOTE | 2022-01-11 15:42 | PC.NURSE ---
Report to the Outpatient Waiting Room, entrance under the green pavilion located off [facility], at time 0615 on date 01/21/22. OR Time: 0815___. - You and your visitor will be asked a series of questions to screen for COVID 19 for your protection. - A mask is required within the hospital. Preoperative COVID Testing Requirements: No COVID Test needed if: (proof is required; if not received patient will have Rapid Test prior to entry) - Patient has received COVID Vaccine at least 14 days prior to procedure date or - Patient has positive COVID test result within last 90 days of surgery date. COVID Test needed if above criteria is not met If not COVID vaccinated a COVID test must be conducted within 72 hours of surgery and patient is asked to isolate self from time of testing until procedure. You will go to the [facility] for your COVID testing. The [facility] site is located at the corner of [address] [facility]. You will only be called if COVID results are positive and your surgeon may reschedule your elective surgery date. Patients may have clear liquids (water, carbonated beverages, clear teas, apple juice) until 3 hours prior to surgery with a maximum of 20 ounces. - No food from midnight until time of surgery - Infants may have breast milk until 4 hours before surgery, infant formula 6 hours prior to surgery. - Children will be allowed to drink immediately following surgery. If applicable, please bring a bottle or sippy cup to assist with drinking. Juice, water, soda, and popsicles are readily available. For infants on formula, please bring formula the day of surgery. Pacifiers are allowed. Take the following medications with a SIP of water the morning of surgery: none Medications to discontinue per physician vitamins Date to take last dose 01/18/22 Please no make-up, nail german, hairspray, perfume, deodorant, or body powder the day of surgery. No jewelry (including any body piercings) or valuables the day of surgery, leave them at home. Please take a shower or bath the night before, or the morning of, surgery with an antibacterial soap. Wear comfortable, loose fitting clothing. Children are encouraged to wear pajamas. - Jewelry must be removed prior to entering the operating room. Rings and piercings that are not removed may be cut off. - The hospital will not accept responsibility for valuables. - Please leave all valuables, including medications, at home the day of surgery. If you are going home after surgery, a licensed driver/merchandiser must drive you home. - NO public transportation without another adult. - We recommend that an adult stay with you for 24 hours following discharge. - We also recommend that you do not drive, make important decision, drink alcoholic beverages, or take any drugs that were not prescribed by your health care provider for at least 24 hours after your discharge time. For Pediatric surgeries, we recommend two adults accompany the child home (only one inside the building at this time). One visitor will be allowed to accompany the patient into the hospital. Patients visitor will be instructed to remain with patient at all times or leave the building. We will allow the visitor to come back to the postoperative area when patient is ready. Follow any additional instructions given to you from your surgeon. Telephone instructions given to Erendira Bourne and asked if any additional questions and then verbalized understanding. Patient advised to call surgeon office or pre surgery nurse liaison [phone] if any additional questions.
--- NOTE | 2022-01-20 05:08 | PM.IMHP ---
H&P: HPI History of Present Illness Date/Time: 01/20/22 05:08 56 yo with now onset SHELLIE after POP surgery Chief Complaint: SHELLIE Review of Systems Review of Systems: All systems reviewed & are unremarkable except as noted in HPI and below PMFSH Past Medical History Medical History Abnormal uterine bleeding Cholesteatoma of ear Colon cancer screening Endometrial thickening on ultrasound Menometrorrhagia Surgical History Surgical History H/O dilation and curettage (~04/2020) Family History Family History Father Family history of thyroid disease Hypertension Family history of sleep apnea Sibling Family history of thyroid disease Grandparent Hypertension Carcinoma of colon Family history of emphysema Family history of dementia Family history of heart disease in male family member before age 55 Diabetes mellitus Mother Family history of chronic obstructive pulmonary disease Social History Social History Smoking status: Never smoker Second hand tobacco smoke exposure: No Alcohol intake: never Substance use: never Substance use type: does not use Spiritual care concerns: No Meds Home Medications and Allergies Home Medications Medication Instructions Recorded Confirmed Type calcium carbonate [Calcium 500] 500 mg PO DAILY 03/26/20 01/11/22 History magnesium oxide 400 mg PO DAILY 03/26/20 01/11/22 History Allergies Allergy/AdvReac Type Severity Reaction Status Date / Time No Known Allergies Allergy Verified 10/04/21 09:52 Exam Narrative: good prolpase support + urehtral mobility Assessment and Plan Assessment and plan (1) SHELLIE (stress urinary incontinence, female): Code(s): N39.3 - Stress incontinence (female) (male) Status: Acute Assessment and Plan: urethral sling
--- NOTE | 2022-01-21 07:15 | WPDHPUPDATE1 ---
History and Physical Update Update Date/Time: 01/21/22 07:15 History and Physical has been reviewed, including an updated exam of the patient. There are NO changes in the patient's condition. Risks, benefits, and alternatives have been discussed and questions answered. Patient agrees to proceed with procedure.
[2022-01-21 07:30] VITALS: BP 119/62; PULSE 70; RESP 16; TEMP 36.8; O2SAT 98
--- NOTE | 2022-01-21 07:58 | P.PNAN_ITS ---
Anes - Initial Pre Proc Eval Procedure: Operation Date: 01/21/22 08:15 Proposed Procedures p Urethral Sling - Leroy Boyd MD Date/Time: 01/21/22 07:58 Surgeon: Leroy Boyd MD Pre Op Diagnosis: stress incontinence Patient Data Age: 56 Gender: F Height: 1.73 m Weight: 70.5 kg Allergies Allergy/AdvReac Type Severity Reaction Status Date / Time No Known Allergies Allergy Verified 10/04/21 09:52 Home Medications Medication Instructions Recorded Confirmed Type calcium carbonate [Calcium 500] 500 mg PO DAILY 03/26/20 01/11/22 History magnesium oxide 400 mg PO DAILY 03/26/20 01/11/22 History Patient hx anesthesia problems: post op nausea/vomiting Family hx anesthesia problems: none Results Review: All pre-operative results and documents have been reviewed as pa rt of the pre-operative evaluation. [facility] Past Medical History Medical History Abnormal uterine bleeding Cholesteatoma of ear Colon cancer screening Endometrial thickening on ultrasound Menometrorrhagia Surgical History Surgical History H/O dilation and curettage (~04/2020) Family History Family History Father Family history of thyroid disease Hypertension Family history of sleep apnea Sibling Family history of thyroid disease Grandparent Hypertension Carcinoma of colon Family history of emphysema Family history of dementia Family history of heart disease in male family member before age 55 Diabetes mellitus Mother Family history of chronic obstructive pulmonary disease Social History Social History Smoking status: Never smoker Second hand tobacco smoke exposure: No Alcohol intake: never Substance use: never Substance use type: does not use Living arrangements: with family Spiritual care concerns: No Anes - Eval Final PreProcedure Day of Procedure 01/21/22 07:58 Patient weight: normal Heart: regular rate and rhythm Lungs: clear to auscultation Airway: Mallampati scale class II Neurological: alert and oriented Last oral intake: >/= 8 hours ASA classification: I Emergent: no Anesthetic plan: proceed Anesthesia type and monitoring: general GIVS and standard monitoring Results Review: All pre-operative results and documents have been reviewed as part of the pre-operative evaluation. Informed Consent: The patient's anesthetic plan and its attendant risks and benefits were discussed with the patient/family/POA. Questions were solicited and answers provided to the satisfaction of the patient/family/POA.
[2022-01-21] MEDS: LACTATED RINGERS 1,000 ML 30 ML IV CONT (07:59)
[2022-01-21] MEDS: ceFAZolin 2 GM/D5W 50 ML 2 GM/50 ML BAG IVPB (08:24)
[2022-01-21 08:58] VITALS: BP 116/58; PULSE 71; RESP 12; O2SAT 99
--- NOTE | 2022-01-21 09:04 | W.PM.PROC2 ---
Procedure Note - Detailed Date of Procedure 01/21/22 Pre-op Diagnosis stress incontinence Post-op Diagnosis Same Procedure Performed mid urethral sling cystoscopy Surgeon Leroy Boyd MD Indications This is a female with confirm stress urinary incontinence. She desires surgical correction. She understands the risks of bleeding, infection, injury to the urinary tract, vaginal mesh extrusion, urinary tract mesh erosion, obstructive voiding requiring a secondary procedure, hip and leg pain, dyspareunia, inability to improve overactive bladder symptoms. She agrees to proceed. Description of Procedure She was correctly identified. Informed consent obtained. She was brought the operating room. She was given appropriate anesthesia. She was given appropriate perioperative antibiotics. A time-out performed. I marked out the site of the inner thigh incisions. I anesthetized the skin and made those incisions. I anesthetized the anterior vaginal wall over the mid urethra. I made a 1 cm incision. I dissected out laterally taking great care not to injure the refilled vaginal wall. I passed the helical trocars. First on the left. Then on the right. I did this from the thigh incision towards the vaginal incision. The sling was connected to the trocars and brought out through the thigh incision. I tensioned the sling appropriately. I cut and the plastic sheaths. I then closed the incision with 2 0 Vicryl. On cystoscopy there is no tumors or surgical artifact. There was no surgical artifact in the urethra. I cut the excess sling material. Close incisions with glue. She was awakened and transferred to the PACU in stable condition. Implants Urethral sling Drains No Packing No Pathology None sent Complications No immediate complications Condition Stable Disposition PACU
[2022-01-21 09:20] VITALS: BP 133/66; PULSE 66; RESP 14; O2SAT 100
[2022-01-21 09:38] VITALS: BP 143/64; PULSE 71; RESP 14
[2022-01-21] MEDS: ACETAMINOPHEN 500 MG TABLET 1000 MG PO (09:41)
== END 2022-01-21 09:49 | disposition home or self-care (01) ==
PROVIDERS: PCP Nurse Practitioner Family; Visit Provider Urology
PROC: (CPT 57288; principal; 2022-01-21 08:15)
DX: N39.3 Stress incontinence (female) (male) (principal)
CPT/HCPCS: 57288; A9270; C1771; J0690; J2001; J2250; J2704; J3010; J7120

== ENCOUNTER → 2022-12-21 09:47 | Outpatient (CLI) | payer OTHER, SELFPAY ==
--- NOTE | ~2022-12-21 | MM_ITS ---
EXAMINATION: MM diagnostic zenobia BI w ade HISTORY: Fibrocystic changes of the breasts TECHNIQUE: Craniocaudal, mediolateral, and mediolateral oblique 3-D tomosynthesis images of the breas ts were performed and synthetic 2-D images were generated. CAD analysis was submitted and interpreted . COMPARISON: 07/15/2021, 01/09/2019, 09/21/2015 BREAST PARENCHYMAL COMPOSITION: The breasts are heterogeneously dense, which may obscure small masses . FINDINGS: No suspicious mass, calcification, or architectural distortion are identified in either beny ast to suggest malignancy. There has been no suspicious interval change. IMPRESSION: 1. No mammographic evidence of malignancy. 2. Recommend routine screening mammography in one year. BI-RADS Category 1: Negative Reviewed, dictated and finalized at location A. AND COVER LINE WORKER
== END ==
PROVIDERS: PCP Nurse Practitioner Family; Visit Provider Student in an Organized Health Care Education/Training Program
DX: R92.2 Inconclusive mammogram (principal)
CPT/HCPCS: 77062; 77066; G0279

== ENCOUNTER → 2023-03-14 16:04 | Outpatient (CLI) | payer OTHER, SELFPAY ==
--- NOTE | ~2023-03-14 | XR_ITS ---
AP view of the pelvis and AP and lateral views of the right hip Clinical history: Pain Findings: No acute fracture or dislocation is seen. Osseous alignment is anatomic. Bilateral hip and SI joint spaces are preserved. Soft tissues are unremarkable. Impression: No significant abnormality is seen. Reviewed, dictated and finalized at location . Impression: No significant abnormality is seen.
== END ==
PROVIDERS: PCP Family Medicine; Visit Provider Nurse Practitioner Family
DX: M25.551 Pain in right hip (principal)
CPT/HCPCS: 73502

== ENCOUNTER 2023-07-21 14:45 | Outpatient (RCR) | payer OTHER, SELFPAY ==
--- NOTE | 2023-06-27 16:24 | OPREHPOC ---
Outpatient Therapy Plan of Care This is a Multidisciplinary Plan of Care that may contain components documented by all disciplines (PT, OT, and ST.) PT Problem 1 PT Problem #1 Knowledge Deficit PT Goal 1 Goal Pt to be IND with issued HEP Target Visit 4 PT Problem 2 PT Problem #2 Pain PT Goal 1 Goal Pt to report hip pain no greater than 2/10 in the last week Target Visit 4 PT Goal 2 Goal Pt to report 75% improvement in overall symptoms Target Visit 4 PT Problem 3 PT Problem #3 Impaired Range of Motion PT Goal 1 Goal Pt to report equal stretch sensation with passive hip extension Target Visit 4
--- NOTE | 2023-06-27 16:24 | PTOPEVAL1 ---
Assessment and note entered by Stephanie North, PT, DPT Evaluation Information Assessment Status Evaluation Diagnosis R hip pain Onset 3-4 months Subjective Information Pt states several months ago she stepped down weird onto her R hip. She states she went to the chiropractor for a while with some relief. She states she has decreased ROM and pain initial upon standing. She reports her pain is not getting any better over the last couple of months. Pt states she is a runner and likes to do orange theory. She states activity is fine and does not cause pain, her only pain is when going from sitting to standing. Reported Pain Level Pain Score 0: Self Report Assessment PT Clinical Summary Erendira presents to therapy today for her initial evaluation with R hip pain. Today she demonstrates tightness and tenderness of her 1 and 2 joint hip flexors. She demonstrates an antalgic pattern and a lateral weight shift during functional motions like squatting. Skilled therapy services are indicated to address compensation, to manage pain, and to return to PLOF. Plan of Care Interventions Gait Training,Hot Pack/Cold Pack,Manual Therapy, Neuro Re-education,Patient/Caregiver Educati, Therapeutic Activities,Therapeutic Exercise, Ultrasound PT Services Indicated Yes Treatment Frequency and 1x/wk for 4 visits Duration These treatments will address the objective and functional deficits as defined above. The patient will be advanced safely and appropriately in order for the patient to progress towards his/her prior level of function. Additional exercises will be introduced and as well as a comprehensive home exercise program upon discharge, if needed, ?to ensure carryover of functional gains achieved in the clinic. This treatment plan has been reviewed and agreement upon by the patient.
--- NOTE | 2023-07-28 15:19 | PCPTNOTE ---
Patient called & cancelled scheduled appointment this date due to being suck at work. She has been rescheduled.
--- NOTE | 2023-08-01 08:28 | PCPTNOTE ---
Patient called & cancelled scheduled appointment this date. Called and LVM to see if pt would like to reschedule.
--- NOTE | 2023-09-05 11:51 | PTOPDC ---
Assessment and note entered by Stephanie North, PT, DPT Evaluation Information Assessment Status Discharge - Pt Not Present Diagnosis R hip pain Onset 3-4 months Subjective Information Pt called and cancelled her appointment on . Called and LVM with her with instructions to call back if she needed to reschedule She has not contacted the clinic since. She will be discharged at this time d/t therapy attendance. Assessment PT Clinical Summary Pt completed 4 visits of skilled therapy from 06/27 to 08/01/23.
== END 2023-09-11 10:35 | disposition home or self-care (01) ==
LOC: ANHGOSHPT 14:45
PROVIDERS: PCP Family Medicine; Visit Provider Nurse Practitioner Family
DX: M25.551 Pain in right hip (principal)
CPT/HCPCS: 97110; 97112; 97161; 97530

== ENCOUNTER 2023-11-02 12:41 | Outpatient (CLI) | payer OTHER, SELFPAY | END 2023-11-02 12:42 | disposition home or self-care (01) | LOC: ANHLAB 12:43 | PROVIDERS: PCP Nurse Practitioner Family; Visit Provider Family Medicine | DX: R39.15 Urgency of urination (principal); N39.0 Urinary tract infection, site not specified; R31.9 Hematuria, unspecified | CPT/HCPCS: 87086; 87088 ==

== ENCOUNTER 2024-03-07 08:09 | Outpatient (CLI) | payer OTHER, SELFPAY ==
--- NOTE | ~2024-03-07 | MM_ITS ---
EXAMINATION: MM screening [facility] BI w ade HISTORY: Screening TECHNIQUE: Craniocaudal and mediolateral oblique 3-D tomosynthesis images were obtained and synthetic 2-D images were generated. CAD analysis was submitted and interpreted. COMPARISON: Comparison to multiple prior studies sequentially, with oldest reviewed study dated 04/2015. BREAST PARENCHYMAL COMPOSITION: Dense: The breasts are heterogeneously dense, which may obscure small masses FINDINGS: There is no evidence of suspicious mass, calcification, or architectural distortion to sugg est malignancy in either breast. There has been no suspicious interval change. IMPRESSION: 1. No mammographic evidence of malignancy. 2. Recommend routine screening mammography in one year. BI-RADS Category 1: Negative Reviewed, dictated and finalized at location A.
== END 2024-03-07 08:10 | disposition home or self-care (01) ==
PROVIDERS: PCP Nurse Practitioner Family; Visit Provider Obstetrics & Gynecology
DX: Z12.31 Encounter for screening mammogram for malignant neoplasm of breast (principal)
CPT/HCPCS: 77063; 77067